=== PATIENT | female | born 1970 | race Caucasian/White ===

== ENCOUNTER 2020-01-13 11:01 | Emergency (ER) | payer OTHER, SELFPAY ==
[2020-01-13 12:18] VITALS: BP 168/95; PULSE 82; RESP 16; TEMP 36.8; O2SAT 98; BMI 41.1
--- NOTE | 2020-01-13 12:57 | ED_ITS ---
Entered by Jenny Reynoso, acting as scribe for Devendra Gonzalez DO Jan 13, 2020 11:01 HPI - Chest Pain General: Chief Complaint: Chest Pain Stated Complaint: CP FOR 3 DAYS Time Seen by Provider: 01/13/20 12:58 History of Present Illness: HPI narrative: 49 yo female presents with chest pain. Pt states that her chest pain is radiating into her left shoulder. Pt states that her pain is worsened by movement. Pt states that pushing on her chest reproduces the pain she feels. Pain is reproducible on the left side of the sternum upper sternum. No skin rash no vesicular rash MD complaint: chest pain Onset (ago): day(s) (3) Associated symptoms: Reports abdominal pain and dyspnea; Deny fever(s), nausea, palpitations, syncope or vomiting Review of Systems Const: Denies: fever, chills, body aches, fatigue, malaise or night sweats Eyes: Denies: change in vision or blurry vision ENMT: Denies: throat pain, oral sores/lesions, dental pain, nasal discharge or nasal congestion Card: Reports: chest pain; Denies: palpitations, irregular heart rhythm, edema, syncope, shortness of breath on exertion, shortness of breath when lying down or leg pain with exertion Resp: Reports: shortness of breath; Denies: productive cough, non-productive cough or wheezing GI: Reports: abdominal pain; Denies: nausea, vomiting, vomiting blood, coffee grounds in vomit, difficulty swallowing, heartburn/indigestion, diarrhea, constipation, cramping, blood in stool or black tarry stool : Denies: flank pain, painful urination, urinary frequency, urinary urgency, urinary incontinence or blood in urine Musc: Denies: neck pain, back pain, extremity pain, extremity swelling, joint pain or joint swelling Skin/Breast: Denies: rash, itching or redness Neuro: Denies: headache, numbness in extremities, weakness in extremities, changes in sensation, lack of coordination, difficulty walking, frequent falls, dizziness, vertigo or confusion Psych: Denies: anxiety, depression, loss of interest, visual hallucinations, auditory hallucinations, suicidal ideation or homicidal ideation Endo: Denies: excessive urination, excessive thirst, tired all the time or cold intolerance Carlito/Lymph: Denies: easy bruising, easy bleeding, petechiae, enlarged lymph nodes or tender lymph nodes PFSH ED PFSH: Medical History Migraine headache Surgical History H/O tubal ligation History of hysterectomy Hx of cholecystectomy Hx of tympanostomy tubes Social History Smoking and tobacco status: never smoked Physical Exam Const: COMMON NORMALS: average body habitus, oriented x3 and alert GENERAL APPEARANCE: cooperative, comfortable, well kempt and well developed NUTRITIONAL APPEARANCE: obese ORIENTATION/CONSCIOUSNESS: Yes awake, Yes oriented to person and Yes oriented to place HENMT: COMMON NORMALS: normocephalic, head/scalp atraumatic, EAC's normal, TM's normal bilaterally, external nose normal, moist oral mucous membranes and oropharynx normal HEAD & SCALP: normocephalic and atraumatic NOSE: external nose normal EXTERNAL AUDITORY CANAL: EAC's normal TYMPANIC MEMBRANE: TM's normal bilaterally MOUTH: oral and palatal mucosa normal, lip normal and tongue normal THROAT: posterior oropharynx normal and tonsils normal Eye: COMMON NORMALS: PERRL, EOMs intact bilaterally, conjunctivae normal and no scleral icterus CONJUNCTIVA: Yes conjunctivae normal PUPIL: Yes PERRL Neck/C-Spine: COMMON NORMALS: full ROM, no lymphadenopathy, supple, no meningeal signs and thyroid normal THYROID: thyroid normal and asymmetrical Lymph: LYMPHATIC: no lymphadenopathy noted Chest: CHEST: Yes tenderness Resp: COMMON NORMALS: normal respiratory effort, no retractions, no use of accessory muscles and clear to auscultation bilaterally AUSCULTATION: clear to auscultation bilaterally Cardio: COMMON NORMALS: regular rate and regular rhythm RATE: regular rate RHYTHM: regular rhythm HEART SOUNDS: no murmurs GI: COMMON NORMALS: normal to inspection, nondistended, normoactive bowel sounds, soft to palpation and no hepatosplenomegaly PALPATION: Yes soft, Yes tender (epigastric) and Yes no hepatosplenomegaly : COMMON NORMALS: Yes no CVA tenderness BLADDER/KIDNEY EXAM: Yes no CVA tenderness Back/Pelvis: COMMON NORMALS: no CVA tenderness LUMBAR SPINE/LOWER BACK: Yes normal to inspection Extremity: COMMON NORMALS: no clubbing, cyanosis or edema, no calf tenderness and no pedal edema Neuro: COMMON NORMALS: oriented x3 SENSORIUM/ORIENTATION: Yes alert, Yes oriented to person and Yes oriented to place MENINGEAL SIGNS: Yes no meningeal signs Psych: APPEARANCE: Yes well kempt Skin: COMMON NORMALS: no rashes or lesions noted and skin turgor normal GENERAL SKIN EXAM: no rashes or lesions noted and turgor normal Course ED course: Chest x-ray and laboratory test negative. Reviewed findings with patient have her stop the [id number] anti-inflammatories and use diclofenac. Vital Signs: Vital signs: Vital Signs Temperature 98.3 F 01/13/20 12:18 Pulse Rate 82 01/13/20 12:18 Respiratory Rate 16 01/13/20 12:18 Blood Pressure 168/95 01/13/20 12:18 Pulse Oximetry 98 01/13/20 12:18 MDM - Chest Pain Lab Data: Labs: Lab Results 01/13/20 01/13/20 01/13/20 Range/Units 13:08 13:08 13:08 WBC 6.6 (4.0-10.0) 10^3/ uL RBC 4.83 (4.1-5.3) 10^6/u L Hgb 14.2 (11.5-15.3) g/dL Hct 42.0 (37.0-47.0) % MCV 87.0 (81-99) fL MCH 29.4 (28.0-34.0) pg MCHC 33.8 (30.0-36.0) g/dL RDW 12.7 (12.1-15.1) % Plt Count 262 (130-400) 10^3/c mm MPV 8.5 (7.4-10.4) fL Neut % (Auto) 63.6 % Lymph % (Auto) 28.9 % Shannon % (Auto) 5.5 % Eos % (Auto) 1.2 % Baso % (Auto) 0.3 % Neut # (Auto) 4.2 (1.8-7.7) 10^3/u L Lymph # (Auto) 1.9 (0.8-4.8) 10^3/u L Shannon # (Auto) 0.4 (0.2-0.9) 10^3/u L Eos # (Auto) 0.1 (0.0-0.8) 10^3/u L Baso # (Auto) 0.0 (0.0-0.1) 10^3/u L Nucleated RBC % (a uto) 0 % Nucleated RBCs # 0.0 /100WBC Sodium 138 (136-145) mmol/L Potassium 4.5 (3.5-5.1) mmol/L Chloride 103 (98-107) mmol/L Carbon Dioxide 24 (22-29) mmol/L Anion Gap 15.5 (5-19) BUN 10 (6-20) mg/dL Creatinine 0.7 (0.5-0.9) mg/dL GFR Calculation 89.7 L (90-130) mL/min Glucose 92 (65-115) mg/dL Calcium 9.9 (8.5-10.5) mg/dL Total Bilirubin 0.3 (0.15-1.2) mg/dL AST 21 (0-32) U/L ALT 25 (0-33) U/L Alkaline Phosphata se 100 (35-105) IU/L Troponin T Baselin e 6 (0-10) ng/mL Total Protein 7.4 (6.6-8.7) g/dL Albumin 4.5 (3.5-5.2) g/dL Globulin 2.9 (1.3-4.6) g/dL Discharge Plan Discharge Patient Disposition: Home, Self-Care Clinical Impression: Anterior chest wall pain Condition: Stable Prescriptions: New diclofenac sodium 75 mg tablet,delayed release (DR/EC) 75 mg PO BID PRN (Reason: pain) Qty: 30 RF: 0 Discontinued ibuprofen 200 mg Tablet 400 mg PO PRN RF: 0 naproxen 1 tab PO DAILY PRN (Reason: Pain) RF: 0 No Action Tylenol Extra Strength 1,000 mg PO PRN RF: 0 Referrals: Timo Abebe MD [Family Provider] - Discharge Diet: Usual diet Discharge Activity: Resume usual activity Coding Level of Care Code ED Shelter Advocate for Chg Fwd Exam Comprehensive The documentation recorded by the Edgardo queen Kialy, accurately reflects the service I personally performed and the decisions made by Carlos jacob Curtis L, DO Jan 13, 2020 11:01
--- NOTE | 2020-01-13 13:00 | XRR_ITS ---
PROCEDURE INFORMATION: Exam: XR Chest, 1 View Exam date and time: 01/13/2020 1:17 PM Age: 49 years old Clinical indication: Cough and dyspnea; Additional info: Dyspnea/cough TECHNIQUE: Imaging protocol: XR of the chest Views: 1 view. COMPARISON: No relevant prior studies available. FINDINGS: Lungs: Unremarkable. No consolidation. Pleural space: Unremarkable. No pleural effusion. No pneumothorax. Heart/Mediastinum: Unremarkable. No cardiomegaly. Bones/joints: No acute findings. XR/XR chest 1V portable [id number] IMPRESSION: No acute findings.
--- NOTE | 2020-01-13 13:00 | ECG_ITS ---
Measurements Intervals [place] Rate: 84 P: 52 MI: 149 QRS: -21 QRSD: 93 T: 40 QT: 368 QTc: 437 SINUS RHYTHM WITH OCCASIONAL VENTRICULAR PREMATURE COMPLEXES BORDERLINE LEFT AXIS DEVIATION [QRS AXIS < -20] No previous ECG available for comparison Electronically Signed On 01-13-2020 15:19:00 CRIMINAL PROFILER by Lorenzo Escobar M.D. [id number]
[2020-01-13 13:16] LABS: Basophils % 0.3 %; Eosinophils # 0.1 10^3/uL (0.0-0.8); Eosinophils % 1.2 %; Hemoglobin 14.2 g/dL (11.5-15.3); Lymphocytes # 1.9 10^3/uL (0.8-4.8); Lymphocytes % 28.9 %; Mean Corpuscular HGB Conc 33.8 g/dL (30.0-36.0); Mean Corpuscular Hemoglobin 29.4 pg (28.0-34.0); Mean Platelet Volume 8.5 fL (7.4-10.4); Monocytes # 0.4 10^3/uL (0.2-0.9); Monocytes % 5.5 %; Neutrophils # 4.2 10^3/uL (1.8-7.7); Neutrophils % 63.6 %; Nucleated Red Blood Cells % 0 %; Platelet Count 262 10^3/cmm (130-400); Red Blood Count 4.83 10^6/uL (4.1-5.3); Red Cell Distribution Width 12.7 % (12.1-15.1); White Blood Count 6.6 10^3/uL (4.0-10.0)
[2020-01-13 13:35] LABS: Troponin(5th) Baseline 6 ng/mL (0-10)
[2020-01-13 13:56] LABS: Alanine Aminotransferase 25 U/L (0-33); Albumin Level 4.5 g/dL (3.5-5.2); Alkaline Phosphatase 100 IU/L (35-105); Anion Gap 15.5 (5-19); Aspartate Amino Transferase 21 U/L (0-32); Blood Urea Nitrogen 10 mg/dL (6-20); Calcium 9.9 mg/dL (8.5-10.5); Carbon Dioxide 24 mmol/L (22-29); Chloride 103 mmol/L (98-107); Creatinine Clr Calc Pharmacy 111.1769; Globulin 2.9 g/dL (1.3-4.6); Glomerular Filtration Rate 89.7 mL/min (90-130); Glucose 92 mg/dL (65-115); Potassium 4.5 mmol/L (3.5-5.1); Sodium 138 mmol/L (136-145); Total Bilirubin 0.3 mg/dL (0.15-1.2); Total Protein 7.4 g/dL (6.6-8.7)
[2020-01-13 14:47] VITALS: BP 156/90; PULSE 82; RESP 18; O2SAT 99
== END 2020-01-13 14:50 | disposition home or self-care (01) ==
PROVIDERS: Emergency Provider Family Medicine; Family Provider Family Medicine
DX: R07.89 Other chest pain (principal); E66.9 Obesity, unspecified; Z68.41 Body mass index [BMI] 40.0-44.9, adult
CPT/HCPCS: 36415; 71045; 80053; 84484; 85025; 93005; 99281; 99283

== ENCOUNTER 2021-04-26 11:51 | Outpatient (CLI) | payer OTHER, SELFPAY ==
--- NOTE | 2021-04-26 12:03 | XR_ITS ---
WS: [id number] RIGHT SHOULDER: 3 VIEW(S) TECHNIQUE: Internal and external rotation with Y view. HISTORY: RIGHT SHOULDER PAIN COMPARISON: None available. No fracture or dislocation or soft tissue abnormality. Mild AC joint arthritis and narrowing. Visualized RIGHT upper lung is clear. XR/XR shoulder RT min 2V* [id number] IMPRESSION: Mild AC joint osteoarthritis.
== END 2021-04-26 11:52 | disposition home or self-care (01) ==
LOC: RAD 12:02
PROVIDERS: PCP Family Medicine; Visit Provider Family Medicine
DX: M25.511 Pain in right shoulder (principal); M19.011 Primary osteoarthritis, right shoulder
CPT/HCPCS: 73030

== ENCOUNTER → 2022-03-22 07:53 | Outpatient (BNVA) | payer OTHER, SELFPAY | PROVIDERS: PCP Family Medicine; Visit Provider Family Medicine | DX: Z51.81 Encounter for therapeutic drug level monitoring (principal); R53.81 Other malaise; R53.83 Other fatigue | CPT/HCPCS: 85025 ==

== ENCOUNTER 2023-01-15 07:24 | Outpatient (CLI) | payer OTHER, SELFPAY ==
[2023-01-15 07:30] VITALS: BMI 43.5
--- NOTE | 2023-01-15 07:30 | ECG_ITS ---
[facility] Test Date: 2023-01-15 Pat Name: Abundio Durham Department: Room: Gender: Female Dye Stand Loader: Lorena SchmidRobin : 1970 Requested By: Timo Pagan Order Number: [id number] Cesar MD: Rubin Perdue M.D. Interpretive Statements NAME OF STUDY: LEXISCAN SESTAMIBI STRESS TEST INDICATION: Chest Pain, PROCEDURE: At the baseline, the EKG revealed normal sinus rhythm with a normal ST Ts. The baseline heart was 87 bpm with a blood pressue of 132/87 mm of Hg Lexiscan was infused over a period of 20 seconds. A total of 0.4 milligrams of Lexiscan was infused. The stress phase was continued for a total of 5 minutes. Heart rate at the end of the stress phase was 95 bpm with a blood pressure 136/88 mm of Hg. The EKG at the peak infusion revealed no significant changes. Sestamibi was injected 20 seconds after the Lexiscan infusion. Heart rate at the end of the recovery phase was 82 bpm with a blood pressure of 117/77 mm of Hg. CONCLUSION: 1. No significant EKG changes with the LexiScan infusion 2. No LexiScan induced chest pain or cardiac arrhythmia 3. Normal blood pressure and heart rate response 4. Sestamibi/sestamibi perfusion scan pending; see separate report. Electronically Signed On 01-19-2023 16:02:52 AUTO BODY MECHANIC by Rubin Perdue M.D. [email or web address]
--- NOTE | 2023-01-15 07:31 | NMCV_ITS ---
NM travis perf SPECT r/s* [id number] Abundio Durham Age: 52 Gender: F : 1970 Exam Date: 01/15/2023 07:31 Ordering Phys: Timo Abebe MD Technologist: CHRISTOPHER Leone Exam Location: [facility] Indications: CHEST PAIN STRESS TEST Please see separate stress test report in [facility] for full findings IMAGE PROTOCOL Rest/Stress 1 Lexiscan Day Radiopharmaceutical Dose (mCi) Administration Site Administered by Rest: Tc-99m 10.8 IV CHRISTOPHER Hoskins Sestamibi Stress:Tc-99m 33.0 IV CHRISTOPHER Hoskins Sestamibi Rest: 15-Jan-2023 60 Discovery 630 Stress: 15-Jan-2023 30 Discovery 630 0.4mg Lexiscan. Images obtained in supine and prone position. SPECT RESULTS Technical Quality: Excellent Raw Data Analysis: Normal Image Corrections: No attenuation or motion correction applied Summed Stress Score: 0 Summed Rest Score: 0 Summed Difference Score: 0 PERFUSION FINDINGS Uniform myocardial tracer uptake with no significant perfusion abnormalities FUNCTIONAL RESULTS (calculated via Gated SPECT) Stress Image LV EF (%): 70 Stress EDV (mL):80 TID: 0.87 Stress ESV (mL):24 FUNCTIONAL FINDINGS: Segmental wall motion analysis revealing no gross wall motion normalities IMPRESSIONS 1. Unremarkable Myocardial perfusion imaging 2. Normal LV ejection fraction of 70%. 3. LV wall motion analysis revealing no gross wall motion abnormalities. 4. Normal LV volume Low probability for coronary ischemia, based on the above findings Dr Rubin Perdue MD FAC (Electronically Signed) Final Date: 15 January 2023 13:58 S
[2023-01-15] MEDS: regadenoson 0.4 Mg/5 ml Syringe IVP (09:23)
[2023-01-15] MEDS: ondansetron 2 mg/ML SDV 2 mL 4 MG IVP (09:36)
[2023-01-15 09:43] VITALS: BP 117/71; PULSE 90
== END 2023-01-15 07:25 | disposition home or self-care (01) ==
PROVIDERS: PCP Family Medicine; Visit Provider Family Medicine
DX: R07.9 Chest pain, unspecified (principal)
CPT/HCPCS: 36415; 78452; 93017; 96374; A9500; J2405; J2785

== ENCOUNTER 2023-11-22 07:14 | Outpatient (CLI) | payer OTHER, SELFPAY ==
--- NOTE | 2023-11-22 07:18 | XRR_ITS ---
PROCEDURE INFORMATION: Exam: XR Left Hand Exam date and time: 11/22/2023 7:33 AM Age: 53 years old Clinical indication: Pain; Finger(s); Left; Additional info: Left thumb pain, evaluate for possible occult fracture at the mcp TECHNIQUE: Imaging protocol: Radiologic exam of the left hand. Views: 3 or more views. COMPARISON: CR XR hand LT min 3V* [id number] 10/28/2023 8:29 AM FINDINGS: Bones/joints: Normal. Soft tissues: Normal. XR/XR hand LT min 3V* [id number] IMPRESSION: No acute findings.
== END 2023-11-22 07:15 | disposition home or self-care (01) ==
LOC: RAD 07:14
PROVIDERS: PCP Family Medicine; Visit Provider Family Medicine
DX: M79.645 Pain in left finger(s) (principal)
CPT/HCPCS: 73130

== ENCOUNTER 2024-01-23 05:45 | Day surgery (SDC) | payer OTHER, SELFPAY ==
[2024-01-23] VITALS (8 sets, daily range): BP systolic 131–151; BP diastolic 65–88; PULSE 80–94; RESP 16–18; TEMP 36.2–36.3; O2SAT 94–97; BMI 41.1
[2024-01-23] MEDS: acetaminophen 1,000 MG/100 ML PIGGYBACK 400 MG IV (06:25)
[2024-01-23] MEDS: sodium chloride 0.9% 1,000 ML 30 ML IV (06:32)
--- NOTE | 2024-01-23 06:32 | P.ANESASSM_ITS ---
Pre-Anesthetic Assessment Height/Weight: Height 1.57 m Weight 102.058 kg Temp Pulse Resp BP Pulse Ox O2 Del Method 97.1 F L 94 18 151/88 97 Room Air 01/23/24 06:08 01/23/24 06:08 01/23/24 06:08 01/23/24 06:08 01/23/24 06:08 01/23/24 06:08 Operation Date: 01/23/24 07:30 Proposed Procedures p Left thumb trigger finger release(Left) - Migue Damico DO Last intake: Intake Last Liquid Date 01/22/24 Last Liquid Time 22:30 Last Solid Date 01/22/24 Last Solid Time 20:30 Social No alcohol and No tobacco Exam alert, oriented x 3, clear to auscultation bilaterally and regular rate & rhythm Airway Submandibular: within normal limits Cervical ROM: within normal limits Mallampati: Class I Anesthetic Plan ASA status: 2 Anesthesia: MAC Medications/Allergies Home Medications Medication Instructions Recorded Confirmed Last Taken Type hydroxyzine HCl 25 mg tablet 25 mg PO ONCE PRN insomnia #90 tabs 10/18/23 01/22/24 01/22/24 Rx sertraline 50 mg tablet 50 mg PO DAILY 01/23/24 01/23/24 01/22/24 History Allergies Allergy/AdvReac Type Severity Reaction Status Date / Time No Known Allergies Allergy Verified 01/22/24 14:00 [facility] Anesthesia Medical History (Updated 01/14/24 @ 08:43 by KOBE Dave) Migraine headache Surgical History Hx of cholecystectomy H/O tubal ligation Hx of tympanostomy tubes History of hysterectomy Social History (Updated 01/14/24 @ 08:13 by Natividad Hurd LPN) Smoking and tobacco/nicotine status: never used tobacco/nicotine Alcohol intake: never Data Anesthesia Cardiac Studies: Sestamibi Stress Test (Cardiology) 01/15
[2024-01-23] MEDS: ketorolac 30 mg/mL INJ IVP (06:33)
[2024-01-23] MEDS: scopolamine 1.5 Patch 1 PATCH TRANSDERMA (06:37)
--- NOTE | 2024-01-23 06:37 | W.PM.OPSUD ---
Surgery/Procedure H&P Update DATE OF PROCEDURE: January 23, 2024 DATE H&P PERFORMED: 01/14/24 H&P UPDATE INFORMATION: I have reviewed H&P completed within last 30 days, I have examined patient prior to procedure and No changes to prior documentation PREOP DIAGNOSIS: Left trigger thumb PRIMARY INDICATION FOR PROCEDURE: Left trigger thumb PLANNED PROCEDURE: Operation Date: 01/23/24 07:30 Proposed Procedures p Left thumb trigger finger release(Left) - Migue Damico DO
[2024-01-23] MEDS: ceFAZolin 2,000 MG in sodium chloride 0.9% (plus) 50 ML 100 MG IV (07:32)
[2024-01-23] MEDS: BUPivacaine 0.5% INJ 10 mL INJECTION (07:45)
[2024-01-23] MEDS: ROPivacaine 0.5% SDV 30 mL 150 MG INJECTION (07:45)
--- NOTE | 2024-01-23 08:05 | P.BOP_ITS ---
Date of Procedure: 01/23/2024 Surgeon: Migue Damico DO Powerhouse Mechanic(s): None Procedure(s) performed: Left thumb trigger release Findings of the procedure(s): Patient found to have severe left thumb trigger finger underwent procedure as planned with no issues or complications Estimated blood loss: 2 mL Specimen(s) removed: None Post-operative diagnosis: Left trigger thumb
--- NOTE | 2024-01-23 08:05 | PM.OP ---
Operative Report Date of procedure: January 23, 2024 Surgeon: Migue Damico DO Procedure: Preoperative diagnosis: Left trigger thumb post-op diagnosis: Left?thumb?trigger Procedure done: Left?thumb?trigger?release Surgeon: Migue Damico DO Estimated blood loss: 1 mL Tourniquet time: 7 minutes Anesthesia: mac local IV fluids: See anesthesia record Complications: None Findings: See operative report narrative Condition: stable Disposition: same day Brief History: Patient presents to the outpatient setting with findings consistent with a Left?thumb?trigger. Patient has been worked up in the outpatient setting and is failed conservative treatment approach.? Patient has a Left?thumb?trigger?that she has tried treating conservatively with recurrence of her?triggering pain.? We talked about treatment options and ultimately patient would like to proceed with a Left?thumb?trigger?release. At this point time I feel this is most appropriate as this is her next best step in treatment option.? We talked about the risk benefits complications and alternatives with surgical nonsurgical treatment options.? Understanding risk of surgery patient agrees to proceed with a Left?thumb?trigger?release. All questions answered. Procedure: Patient was seen evaluated in the preoperative holding area.? Consent was reviewed and signed with patient.? Correct extremity was then marked.? Patient was then seen and evaluated by the anesthesia department once cleared for surgery patient was then taken back to the operative suite patient was placed in supine position and all bony prominences well-padded the patient was properly secured to the bed.? Armboard was applied to the Left upper extremity and the Left upper extremity was then placed with a nonsterile tourniquet to the Left upper arm.? This point time the Left upper extremity was then prepped and draped in standard orthopedic fashion.? A final timeout was performed.? Patient received appropriate preoperative antibiotics. Esmarch tourniquet was used exsanguinate the Left upper extremity and tourniquet was insufflated to 250 mmHg.? I identified patient's MP flexion crease marked appropriate incision transversely across the flexion crease within Chichi's lines sharp scalpel incision was made only through skin.? Once this was done I switched to Littler dissection scissors this I then subsequently spread longitudinally in the planes of the digital nerves.? Once these were identified these were protected by my executive personal assistant with Kasdan retractors.? Next I identified directly over the A1 irais of the Left?thumb.? This was significantly thickened and identified to be the area of patient's?thumb?triggering.? I used sharp scalpel to incise the A1 irais and then utilized my executive personal assistant to retract the ability and under loupe magnification released the entirety of the A1 irais both proximally and distally up to the oblique irais.? This point time the tendon was then inspected and found to be healthy there was some inflammation around the tendon itself but no evidence of tearing and no need for any debridement.? The Ragnell was used to pull the tendon out of the incision and there was no mechanical?triggering I then took the patient's?thumb?through range of motion no recurrent?triggering was noted. I then subsequently had anesthesia awake the patient will have them follow commands patient was able to make a full fist as well as to flex and extend the thumb with no triggering noted.? ?I then let the tourniquet down identified and maintained exact hemostasis with bipolar electrocautery irrigated the wound bed and then closed the incision with interrupted nylon suture. Incision sites were then dressed with Xeroform 4 x 4's Kerlix Drea wrap and an Ronald wrap.? Patient was then awakened from anesthesia and taken to PACU in stable condition. Disposition: Patient taken to PACU in stable condition recovering well.? Dressing on in place clean dry and intact.? Patient was receive appropriate discharge instruction as well as pain medication postoperatively.? Patient may be allowed weightbearing as tolerated to the Left hand and encourage range of motion once dressing come down after 72 hours.? Patient to follow-up with me in the office in 2 weeks.? Patient understands and agrees with current plan.? All questions answered.
--- NOTE | 2024-01-23 20:16 | ANE.PACU2 ---
Inpatient post-anesthesia follow up: Airway intact: Yes Vital signs: Temperature 97.3 F Pulse Rate 81 Respiratory Rate 18 Blood Pressure 140/65 Pulse Oximetry 96 Oxygen Delivery Me thod Room Air Oxygen Flow Rate Fraction of Inspir ed Oxygen Hydration adequate: Yes Nausea and vomiting: No Pain level: 2 Mental status: Baseline
== END 2024-01-23 09:15 | disposition home or self-care (01) ==
PROVIDERS: PCP Family Medicine; Visit Provider Student in an Organized Health Care Education/Training Program
PROC: (CPT 26055; principal; 2024-01-23 07:30)
DX: M65.312 Trigger thumb, left thumb (principal)
CPT/HCPCS: 26055; J0131; J0690; J1885; J2704; J2795; J3490; J7030

== ENCOUNTER → 2024-04-10 12:14 | Outpatient (BNVA) | payer OTHER, SELFPAY | PROVIDERS: PCP Family Medicine; Visit Provider Clinical Nurse Specialist Adult Health | DX: M79.672 Pain in left foot (principal); J42 Unspecified chronic bronchitis; J20.8 Acute bronchitis due to other specified organisms | CPT/HCPCS: 80048; 84550 ==

== ENCOUNTER → 2024-09-15 10:24 | Outpatient (BNVA) | payer OTHER, SELFPAY | PROVIDERS: PCP Family Medicine; Visit Provider Family Medicine | DX: Z51.81 Encounter for therapeutic drug level monitoring (principal); M25.50 Pain in unspecified joint | CPT/HCPCS: 80053; 85025; 85651; 86038; 86141; 86431; 86618; 86666; 86757 ==

== ENCOUNTER → 2025-03-05 11:14 | Outpatient (BNVA) | payer OTHER, SELFPAY | PROVIDERS: PCP Family Medicine; Visit Provider Emergency Medicine | DX: J02.9 Acute pharyngitis, unspecified (principal); J06.9 Acute upper respiratory infection, unspecified | CPT/HCPCS: 87071; 87880 ==

== ENCOUNTER 2025-04-02 11:33 | Outpatient (CLI) | payer OTHER, SELFPAY ==
--- NOTE | 2025-04-02 12:00 | USCV_ITS ---
Abundio Durham Age: 54 Gender: F : 1970 Exam Date: 04/02/2025 12:00 Ordering Phys: Yesenia Rosales DO Technologist: R Exam Location: [facility] [place] Indication: DVT HISTORY: DVT PROCEDURES: Venous duplex imaging was performed in only the left lower extremity. Serial compression, augmentation maneuvers, and spectral Doppler flow evaluation were performed. FINDINGS: Normal 2-D Doppler and augmentation and compressibility throughout the lower extremity venous structures. Additional imaging through the proximal calf veins also reveals no thrombus. Limited evaluation of the greater saphenous vein is patent with no thrombus. CONCLUSIONS No DVT left lower extremity. Dr. Becka Felix DO (Electronically Signed) Final Date: 02 Apr 2025 13:15 S
== END 2025-04-02 11:34 | disposition home or self-care (01) ==
LOC: RAD 11:34
PROVIDERS: PCP Family Medicine; Visit Provider Emergency Medicine
DX: O22.30 Deep phlebothrombosis in pregnancy, unspecified trimester (principal)
CPT/HCPCS: 93971

== ENCOUNTER → 2025-04-08 10:52 | Outpatient (BNVA) | payer OTHER, SELFPAY | PROVIDERS: PCP Family Medicine; Visit Provider Family Medicine | DX: R03.0 Elevated blood-pressure reading, without diagnosis of hypertension (principal); R53.81 Other malaise; R53.83 Other fatigue | CPT/HCPCS: 84443; 84550 ==

== ENCOUNTER 2025-04-26 08:52 | Outpatient (CLI) | payer OTHER, SELFPAY ==
--- NOTE | 2025-04-26 09:06 | XR_ITS ---
WS: [id number] LEFT FOOT: 2 VIEW(S) TECHNIQUE: AP and lateral. HISTORY: Foot pain left - heel COMPARISON: None available. No acute fracture or dislocation. Normal tarsal/metatarsal alignment. No soft tissue abnormality or bone destruction. Small calcaneal spur. Enthesopathy at the Achilles tendon attachment. XR/XR foot LT 2V [id number] IMPRESSION: No acute fractures. Mild enthesopathy at the Achilles tendon attachment.
--- NOTE | 2025-04-26 09:06 | XR_ITS ---
WS: [id number] LEFT KNEE: 3 VIEW(S) TECHNIQUE: AP, oblique(s) and lateral. HISTORY: Left knee pain COMPARISON: None available. No fracture or dislocation. No joint space narrowing or osteophytes. No joint effusion. Patellar enthesopathy at the quadriceps tendon insertion site. XR/XR knee LT 3V* [id number] IMPRESSION: 1. No fracture. 2. Enthesopathy quadriceps tendon at the patella.
== END 2025-04-26 08:53 | disposition home or self-care (01) ==
PROVIDERS: PCP Family Medicine; Visit Provider Family Medicine
DX: M77.32 Calcaneal spur, left foot (principal); M76.62 Achilles tendinitis, left leg; M76.892 Other specified enthesopathies of left lower limb, excluding foot
CPT/HCPCS: 73562; 73620

== ENCOUNTER → 2025-04-29 09:10 | Outpatient (BNVA) | payer OTHER, SELFPAY | PROVIDERS: PCP Family Medicine; Visit Provider Podiatrist Foot & Ankle Surgery | DX: M79.672 Pain in left foot (principal); M72.2 Plantar fascial fibromatosis | CPT/HCPCS: 73630 ==

== ENCOUNTER → 2025-10-15 13:50 | Outpatient (BNVA) | payer OTHER, SELFPAY | PROVIDERS: Visit Provider Emergency Medicine | DX: J06.9 Acute upper respiratory infection, unspecified (principal) | CPT/HCPCS: 87400; 87426 ==